=== PATIENT | female | born 1945 | race African-American/Black ===

== ENCOUNTER 2022-01-04 20:17 | Emergency (ER) | payer MEDICARE, OTHER ==
[~2022-01-04] VITALS: Ht 162.6 cm; Wt 75.0 kg
--- NOTE | 2022-01-04 20:44 | NUR ---
spoke w/ Bonita who is the patient's granddaughter. per Bonita pt is in route to [place] from [facility]. Pt has hx of dementia and has gotten of the bus at every stop and had to have law enforment personnel or ems intervene. miguel Mesa pt can get on the bus again at 0915 01/04 or the family is looking into getting her a plane ticket directly to [place]
--- NOTE | 2022-01-04 21:36 | NUR ---
FAMILY PURCHASED [facility] FOR PT. FLIGHT LEAVES AT [phone].
[2022-01-05 06:06] VITALS: BP 161/82
== END 2022-01-05 06:10 | disposition home or self-care (01) ==
LOC: ER 20:17
DX: F03.90 Unspecified dementia, unspecified severity, without behavioral disturbance, psychotic disturbance, mood disturbance, and anxiety (principal); W19.XXXA Unspecified fall, initial encounter; Y93.89 Activity, other specified; Y92.89 Other specified places as the place of occurrence of the external cause; Y99.8 Other external cause status
CPT/HCPCS: 70450; 99285